=== PATIENT | female | born 1985 | race African-American/Black ===

== ENCOUNTER 2020-03-13 02:33 | Emergency (ER) | payer SELFPAY ==
--- NOTE | ~2020-03-13 | XR_ITS ---
EXAMINATION: XR chest 2V EXAM DATE: 03/13/2020 03:04 INDICATION: Syncope. TECHNIQUE: Frontal and lateral projections of the chest obtained and reviewed. There is no prior salvador dy for comparison. FINDINGS: The lungs are clear. There are no pleural effusions. The cardiomediastinal silhouette is within normal limits. There is no pneumothorax suspected. The bones and soft tissues are unremarkab le. IMPRESSION: Normal chest x-ray exam. Reviewed, dictated and finalized at location A. IMPRESSION: Normal chest x-ray exam.
[2020-03-13 02:35] VITALS: BP 118/75; PULSE 75; RESP 16; TEMP 37; O2SAT 100
[2020-03-13 03:01] VITALS: BP 115/73; PULSE 70
[2020-03-13 03:02] VITALS: BP 118/76; BP 120/76; PULSE 71; PULSE 75
[2020-03-13 03:06] LABS: Basophils Absolute Auto 0.1 K/mm3 (0.0-0.1); Basophils Percent Auto 0.6 % (0.2-1.2); Eosinophils Absolute Auto 0.1 K/mm3 (0-0.3); Eosinophils Percent Auto 1.7 % (0-4.4); Hematocrit 29.8 % (37.0-47.0); Hemoglobin 8.7 g/dL (12.0-15.0); Immature Granulocyte Absolute 0.03 K/mm3 (0.00-0.031); Immature Granulocyte Percent A 0.4 % (0-0.5); Lymphocytes Absolute Auto 4.27 K/mm3 (0.9-3.2); Lymphocytes Percent Auto 51.1 % (18.3-44.2); Mean Corpuscular HGB Conc 29.2 g/dl (32-36); Mean Corpuscular Hemoglobin 19.9 pg (26-34); Mean Corpuscular Volume 68.2 fl (80-100); Mean Platelet Volume 9.2 fl (7.4-10.4); Monocytes Absolute Auto 0.6 K/mm3 (0.1-0.6); Monocytes Percent Auto 7.3 % (2.6-8.5); Neutrophils Absolute Auto 3.3 K/mm3 (1.3-6.7); Neutrophils Percent Auto 38.9 % (45.5-73.1); Platelet Count Result 328 k/mm3 (150-375); Red Blood Count 4.37 M/mm3 (4.2-5.4); Red Cell Distribution Width 18.3 % (11.5-14.5); White Blood Count 8.4 K/mm3 (4.5-10.0)
[2020-03-13] MEDS: SODIUM CHLORIDE 0.9% IV 1,000 ML 999 ML IV CONT (03:14)
[2020-03-13 03:18] LABS: Anion Gap 9 mmol/L (8-16); Blood Urea Nitrogen 11 mg/dL (7-17); Calcium 9.4 mg/dL (8.4-10.2); Carbon Dioxide 22 mmol/L (22-30); Chloride 109 mmol/L (98-107); Estimated CRCL calculation 135 ml/min; Estimated Glomerular Filt Rate > 60; Glucose 101 mg/dL (65-105); Potassium 3.9 mmol/L (3.4-5.0); Sodium 140 mmol/L (137-145)
[2020-03-13 03:26] LABS: Add Urine Microscopic? NO; Appearance Urine Clear (Clear); Bilirubin Urine Negative (Negative); Blood Urine Negative (Negative); Color Urine Straw (Yellow); Glucose Urine UA Negative (Negative); Ketones Urine Negative (Negative); Leukocyte Esterase Ur Negative LEU/UL (Negative); Nitrate Urine Negative (Negative); Protein Urine Negative (Negative); Urobilinogen Urine Negative mg/dL (<2.0)
[2020-03-13 03:41] LABS: Atypical Lymphocytes Present; Platelet Estimate Adequate (Adequate)
[2020-03-13 03:42] LABS: Anisocytosis 1+ (NORMAL); Hypochromasia 1+ (NORMAL)
--- NOTE | 2020-03-13 03:50 | ED.GENADULT ---
HPI - General Adult General Chief complaint: Dizziness Stated complaint: poss syncope History of Present Illness HPI narrative: Patient is a 34-year-old female who presents ER with syncope. Patient was working at a local establishment when she can feel very lightheaded and flushed was eased to the ground by coworkers. They think she was unconscious for about a minute. Patient has no chest pain or shortness of breath or nausea or vomiting at this time. Patient has had similar issues in the past where she was dehydrated. Patient reports over the course the day she has had episodes of being warm and cold. Related Data Allergies Allergy/AdvReac Type Severity Reaction Status Date / Time No Known Allergies Allergy Verified 03/13/20 04:28 Review of Systems Review of Systems: All systems reviewed & are unremarkable except as noted in HPI and below Constitutional: Constitutional: Reports chills, Denies fever(s) and Reports weakness ENT: Denies nasal congestion and Denies sore throat Cardiovascular: Cardiovascular: Denies chest pain, Denies rapid heart rate and Denies radiating jaw, neck or arm pain Respiratory: Respiratory: Denies cough and Denies dyspnea Gastrointestinal: Gastrointestinal: Denies abdominal pain, Denies nausea and Denies vomiting Neurologic: Reports syncope, Denies focal weakness and Denies numbness PMFSH Past Medical History Medical History (Updated 03/13/20 @ 04:52 by Davy Purdy MD) Anemia Surgical History Surgical History (Updated 03/13/20 @ 04:50 by Davy Purdy MD) No pertinent past surgical history Social History Social History Gender identity (if verbalized by the patient): Female Exam Narrative: Exam Narrative: GENERAL: Well-appearing, well-nourished, and in no acute distress. HEAD: Normocephalic, atraumatic. ENT: Mucous membranes moist. CHEST: Clear to auscultation. No respiratory distress. HEART: Regular rate and rhythm. Normal peripheral pulses. ABDOMEN: Soft, nontender, nondistended. EXTREMITIES: Normal range of motion. No edema. SKIN: Warm, dry, no rash. NEURO: No focal deficits. Alert and oriented x3. Course Course Emergency Course: Patient looks well and feels well. Normal prehospital EKG. She has been hydrated. She reports she is chronically anemic and she does not take iron. Educated her on the importance of iron supplementation and follow-up with her primary care doctor. Vital Signs Vital signs: Vital Signs Temperature 98.6 F 03/13/20 02:35 Pulse Rate 75 03/13/20 02:35 Respiratory Rate 16 03/13/20 02:35 Blood Pressure 118/75 03/13/20 02:35 Pulse Oximetry 100 03/13/20 02:35 Temperature 98.6 F 03/13/20 02:35 Pulse Rate 75 03/13/20 03:02 Respiratory Rate 16 03/13/20 02:35 Blood Pressure 120/76 03/13/20 03:02 Pulse Oximetry 100 03/13/20 02:35 Medical Decision Making Vital Signs Vital Signs: Vital Signs Temperature 98.6 F 03/13/20 02:35 Pulse Rate 75 03/13/20 02:35 Respiratory Rate 16 03/13/20 02:35 Blood Pressure 118/75 03/13/20 02:35 Pulse Oximetry 100 03/13/20 02:35 Temperature 98.6 F 03/13/20 02:35 Pulse Rate 75 03/13/20 03:02 Respiratory Rate 16 03/13/20 02:35 Blood Pressure 120/76 03/13/20 03:02 Pulse Oximetry 100 03/13/20 02:35 Lab Data Result diagrams: 03/13/20 02:56 03/13/20 02:56 Labs: Lab Results 03/13/20 03/13/20 03/13/20 Range/Units 02:56 02:56 03:17 WBC 8.4 (4.5-10.0) K/mm3 RBC 4.37 (4.2-5.4) M/mm3 Hgb 8.7 L (12.0-15.0) g/dL Hct 29.8 L (37.0-47.0) % MCV 68.2 L (80-100) fl MCH 19.9 L (26-34) pg MCHC 29.2 L (32-36) g/dl RDW 18.3 H (11.5-14.5) % Plt Count 328 (150-375) k/mm3 MPV 9.2 (7.4-10.4) fl Immature Gran % (Auto) 0.4 (0-0.5) % Neut % (Auto) 38.9 L (45.5-73.1) % Lymph % (Auto) 51.1 H (18.3-44.2) % [place] % (Auto) 7.3 (2.6-8.5) % Eos %
[2020-03-13 04:58] VITALS: BP 116/68; PULSE 82; RESP 17; O2SAT 100
== END 2020-03-13 05:04 | disposition home or self-care (01) ==
PROVIDERS: Emergency Provider Emergency Medicine
DX: D64.9 Anemia, unspecified (principal); R55 Syncope and collapse
CPT/HCPCS: 36415; 71046; 80048; 81003; 81025; 85025; 96360; 99283; J7030